=== PATIENT | male | born 1950 | race Caucasian/White ===

== ENCOUNTER 2022-08-25 08:04 | Day surgery (SDC) | payer MEDICARE, OTHER ==
[2022-08-24 13:53] VITALS: BMI 33.9
[2022-08-25] MEDS ORDERED: PHENYLephrine 2.5% Ophth Soln 15 ml Bottle ONE (08:27)
[2022-08-25] MEDS ORDERED: Cyclopentolate 1% Opth Drop 2 ML BOT ONE (08:27)
[2022-08-25] MEDS ORDERED: fentaNYL PF 100 MCG/2 ML SYRINGE ONE (09:33)
[2022-08-25] MEDS ORDERED: SUGAMMADEX SODIUM 200 MG/2 ML VIAL ONE (09:34)
[2022-08-25] MEDS ORDERED: EPINEPHrine 0.3 MG in Ophthalmic Irrigation Solution 500 ML IRR SCH (10:00)
[2022-08-25] MEDS ORDERED: PROPOFOL 200 MG/20 ML VIAL ONE (10:09)
[2022-08-25] MEDS ORDERED: Lidocaine 4% PF 5 ML AMP ONE (10:09)
[2022-08-25] MEDS ORDERED: Bupivacaine 0.75% 10 ML VIAL ONE (10:09)
[2022-08-25] MEDS ORDERED: Maxitrol 0.1% Opth Oint 3.5 GM TUBE ONE (10:09)
[2022-08-25] MEDS ORDERED: Lidocaine 1% PF 5 ML VIAL ONE (10:09)
[2022-08-25] MEDS ORDERED: CEFAZOLIN 1 GM VIAL ONE (10:09)
[2022-08-25] MEDS ORDERED: Triamcinolone 40 MG/ML VIAL ONE (10:09)
== END 2022-08-25 11:50 | disposition home or self-care (01) ==
LOC: SDC 08:04
PROVIDERS: ATTEND Ophthalmology Retina Specialist
PROC: 08B43ZZ Excision of Right Vitreous, Percutaneous Approach (ICD-10-PCS; principal; 2022-08-25)
DX: H33.41 Traction detachment of retina, right eye (principal)
CPT/HCPCS: 67113; C1814; J0171; J0690; J2704; J3301; J3490

== ENCOUNTER 2022-12-29 06:41 | Day surgery (SDC) | payer MEDICARE, OTHER ==
[2022-12-28 10:43] VITALS: BMI 34.5
[~2022-12-29 06:41] MED LIST: EPINEPHrine 0.3 MG in Ophthalmic Irrigation Solution 500 ML IRR SCH
[2022-12-29] MEDS ORDERED: fentaNYL 50 mcg/mL 1 mL Vial ONE (06:56)
[2022-12-29] MEDS ORDERED: Midazolam HCl 2 mg/2 ml Vial ONE (06:56)
[2022-12-29] MEDS ORDERED: Cyclopentolate W/ Phenylephrin 5 ML BOT ONE (07:31)
[2022-12-29] MEDS ORDERED: PROPOFOL 200 MG/20 ML VIAL ONE (08:50)
[2022-12-29] MEDS ORDERED: Lidocaine 4% PF 5 ML AMP ONE (08:50)
[2022-12-29] MEDS ORDERED: CEFAZOLIN 1 GM VIAL ONE (08:50)
[2022-12-29] MEDS ORDERED: Maxitrol 0.1% Opth Oint 3.5 GM TUBE ONE (08:50)
[2022-12-29] MEDS ORDERED: Triamcinolone 40 MG/ML VIAL ONE (08:50)
[2022-12-29] MEDS ORDERED: Lidocaine 1% PF 5 ML VIAL ONE (08:50)
[2022-12-29] MEDS ORDERED: Bupivacaine 0.75% 10 ML VIAL ONE (08:50)
== END 2022-12-29 10:07 | disposition home or self-care (01) ==
LOC: SDC 06:41
PROVIDERS: ATTEND Ophthalmology Retina Specialist
PROC: 08T43ZZ Resection of Right Vitreous, Percutaneous Approach (ICD-10-PCS; principal; 2022-12-29)
DX: H33.21 Serous retinal detachment, right eye (principal); Z88.6 Allergy status to analgesic agent
CPT/HCPCS: 67036; J3010; J0171; J0690; J2250; J2704; J3301; J3490

== ENCOUNTER 2023-09-21 05:44 | Day surgery (SDC) | payer MEDICARE, OTHER ==
[2023-09-16 13:47] VITALS: BMI 34.0
[2023-09-21] MEDS ORDERED: EPINEPHrine 0.3 MG in Ophthalmic Irrigation Solution 500 ML IRR SCH (06:00)
[2023-09-21] MEDS ORDERED: Midazolam HCl 2 mg/2 ml Vial ONE (06:46)
[2023-09-21] MEDS ORDERED: PROPOFOL 20 ML ONE (06:46)
[2023-09-21] MEDS ORDERED: fentaNYL 50 mcg/mL 1 mL Vial ONE (06:46)
[2023-09-21] MEDS ORDERED: CEFAZOLIN 1 GM VIAL ONE (07:49)
[2023-09-21] MEDS ORDERED: Lidocaine 4% PF 5 ML AMP ONE (07:49)
[2023-09-21] MEDS ORDERED: Lidocaine 1% PF 5 ML VIAL ONE (07:49)
[2023-09-21] MEDS ORDERED: Triamcinolone 40 MG/ML VIAL ONE (07:49)
[2023-09-21] MEDS ORDERED: Bupivacaine 0.75% 10 ML VIAL ONE (07:49)
[2023-09-21] MEDS ORDERED: Maxitrol 0.1% Opth Oint 3.5 GM TUBE ONE (07:49)
[2023-09-21] MEDS ORDERED: Indocyanine Green 25 MG/10 ML VIAL ONE (07:49)
== END 2023-09-21 08:50 | disposition home or self-care (01) ==
LOC: SDC 05:44
PROVIDERS: ATTEND Ophthalmology Retina Specialist
PROC: 08T43ZZ Resection of Right Vitreous, Percutaneous Approach (ICD-10-PCS; principal; 2023-09-21)
PROC: 08NE3ZZ Release Right Retina, Percutaneous Approach (ICD-10-PCS; 2023-09-21)
DX: H35.371 Puckering of macula, right eye (principal); Z88.6 Allergy status to analgesic agent
CPT/HCPCS: 67042; J0171; J0690; J2250; J2704; J3010; J3301; J3490